=== PATIENT | female | born 1965 | race Caucasian/White ===

== ENCOUNTER 2017-02-26 19:52 | Emergency (ER) | payer BC ==
--- NOTE | ~2017-02-26 | ER ---
[facility]GE[facility] 51 Y [address] ROOM: [place] [address] LOCATION: [facility] ADMIT DATE: 02/26/2017 ER/Outpatient Report DISCHARGE DATE: 02/26/2017 FAMILY PHYSICIAN: Sarah Vines MD ATTENDING PHYSICIAN: Geovanna Bishop Time of Arrival: 1952 hours. Time of Evaluation: 2002 hours. IDENTIFICATION: A 51-year-old female. CHIEF COMPLAINT: Lightheaded and nausea. HISTORY OF PRESENT ILLNESS: The patient was in a conference in [place] today when at about 3 p.m., she developed some dizziness, lightheadedness, and nausea. This has increased in severity. She describes it as dizziness or lightheadedness, but when you ask her about it, she says that things are kind of spinning or moving. She feels unsteady and off balance. Things are worse with her eyes open and worse with movement. No recent infections. No fever or chills. No headache. No other symptoms. No ill contacts. ALLERGIES: PENICILLIN CAUSES A RASH. CURRENT MEDICATIONS: control pills. MEDICAL PROBLEMS: Denies. PRIOR SURGERIES: Shoulder surgery and D and C. SOCIAL HISTORY: The patient lives here in [place]. She is . Tobacco use, denies. Alcohol use, occasional. Drug use, denies. FAMILY HISTORY: No pertinent family history. REVIEW OF SYSTEMS: All systems reviewed and negative other than what is noted in the HPI. PATIENT'S NAME: DANIELA [facility] AGE: 51 Y [address] ROOM: [place] [address] LOCATION: [facility] ADMIT DATE: 02/26/2017 ER/Outpatient Report DISCHARGE DATE: 02/26/2017 FAMILY PHYSICIAN: Sarah Vines MD ATTENDING PHYSICIAN: Geovanna Bishop PHYSICAL EXAMINATION: VITAL SIGNS: Height 5 feet 4 inches, weight 74.1 kg. Blood pressure 142/83, pulse 72, respirations 28, sats 100%. GENERAL: A 51-year-old female, in obvious distress. HEENT: Head: Normocephalic, atraumatic. Ears: TMs translucent both ears. Eyes: Pupils equal and reactive to light and accommodation. Extraocular movements intact. Conjunctivae normal. The patient does have horizontal nystagmus. Nose: Mucosa pink. No lesions. Mouth: No lesions. Pharynx benign. NECK: Supple. No lymphadenopathy. No nuchal rigidity. LUNGS: Clear to auscultation. HEART: Regular rate and rhythm. No murmur, rub, or gallop. ABDOMEN: Bowel sounds present. Soft, nondistended, nontender. SKIN: [place], warm, and dry. No lesions or rashes noted. NEURO: No focal deficit. The patient is alert and oriented x4. Cranial nerves II through XII grossly intact. Motor strength 5/5 throughout. Sensation is intact to light touch. EMERGENCY ROOM COURSE: An IV was initiated and 1 L of normal saline was infused. Labs were obtained as well as an EKG and a head CT. Valium 0.5 mg IV was given with meclizine 12.5 mg p.o. and Zofran 4 mg IV. Valium was repeated at 0.5 mg IV, and the patient was given 40 mEq of p.o. potassium for hypokalemia. EKG normal sinus rhythm at 63 beats per minute. No acute ST elevation or depression. No prior EKG available for comparison. Hemoglobin 13, hematocrit 38.2, platelets 273, white count 9.0 with a normal differential. Sodium 143, potassium low at 2.8, chloride 112, CO2 of 21, BUN 11, creatinine 0.9. Blood sugar 97. Liver enzymes normal. CPK 171, CK-MB 2.6. Troponin I less than 0.040. HCG 2.0. Head CT without contrast, normal. IMPRESSION AND PLAN: 1. Vertigo: IV fluids and Zofran. Valium and meclizine as noted above. The patient does not wish to stay in the hospital. She will be discharged home with vertigo handout. Meclizine 12.5 mg 1 p.o. q.8 hours p.r.n. dizziness, dispensed 10 with 0 refills. Zofran 4 mg q.6 hours p.r.n. nausea, dispensed 10 with 0 refills. Slow cautious movements and follow up in 1 day. 2. Hypokalemia: KCl 40 mEq p.o. given here in the emergency room. Follow up in 1 day to recheck. The patient and her family understand and agree and all questions have been answered. PATIENT'S NAME: JEANA SUAREZ [facility] AGE: 51 Y [address] ROOM: [place] [address] LOCATION: [facility] ADMIT DATE: 02/26/2017 ER/Outpatient Report DISCHARGE DATE: 02/26/2017 FAMILY PHYSICIAN: Sarah Vines MD ATTENDING PHYSICIAN: Geovanna Bishop MD CAR/modl /[id number] d: 02/27/17 0418 t: 02/27/17 191, OUTPATIENT REPORT
[2017-02-26 20:23] LABS: BASOPHIL # 0.1 K/uL (0.0-0.2); BASOPHIL % 0.9 %; EOSINOPHIL # 0.1 K/uL (0.0-0.5); EOSINOPHIL % 1.1 %; HEMATOCRIT 38.2 % (33.0-46.0); IMMATURE GRANULOCYTE % 0.2 %; LYMPHOCYTE # 4.3 K/uL (0.8-4.0); LYMPHOCYTE % 47.3 %; MCH 30.9 pg (27.0-34.0); MCV 90.7 fl (83.0-98.0); MONOCYTE # 0.5 K/uL (0.0-1.0); MONOCYTE % 5.7 %; MPV 9.7 fl (9.4-12.4); NEUTROPHIL % 44.8 %; NRBC % 0 /100WBC (0-0.00); PLATELET COUNT 273 K/uL (150-450); RBC 4.21 M/uL (3.50-5.50); RDW-CV 12.6 % (11.9-14.6)
[2017-02-26 20:42] LABS: ALBUMIN 3.9 gm/dL (3.5-5.0); ALK PHOS 65 IU/L (33-138); ALT 27 IU/L (12-78); ANION GAP 12.8 (10.0-19.0); AST 16 IU/L (10-40); BLOOD UREA NITROGEN 11 mg/dL (6-24); CALCIUM 8.8 mg/dL (8.5-10.5); CHLORIDE 112 mMol/L (96-110); CO2 21 mMol/L (22-32); CPK 171 IU/L (21-215); CREATININE 0.9 mg/dL (0.5-1.1); ESTIMATED GFR (MDRD EQUATION) > 60; POTASSIUM 2.8 mMol/L (3.7-5.1); SODIUM 143 mMol/L (135-145); TOTAL BILIRUBIN 0.5 mg/dL (0.0-1.5); TOTAL PROTEIN 7.4 g/dL (6.0-8.4)
== END 2017-02-26 22:30 | disposition disaster alternative care site (69) ==
LOC: GMED 19:52
PROVIDERS: Family Medicine
DX: R42 Dizziness and giddiness (principal); E87.6 Hypokalemia; Z88.0 Allergy status to penicillin
CPT/HCPCS: J2405; J3360; J7030